=== PATIENT | female | born 1970 | race Hispanic/Latino ===

== ENCOUNTER 2018-04-11 17:18 | Observation (INO) | payer BC ==
[~2018-04-11] VITALS: Ht 152.4 cm; Wt 79.8 kg
[2018-04-11] MEDS ORDERED: SODIUM CHLORIDE 0.9% 1000ML 1,000 ML ONE (19:00)
[2018-04-11] MEDS ORDERED: METOPROLOL TARTRATE 50 MG TAB PO ONE (20:45)
[2018-04-11] MEDS ORDERED: ASPIRIN 81 MG CHEW TAB PO STA (20:48)
[2018-04-11] MEDS ORDERED: SODIUM CHLORIDE FLUSH 10 ML SYR INJ PRN (21:15)
[2018-04-11] MEDS ORDERED: PROMETHAZINE HCL (IM) 25 MG/ML VIAL IV PRN (21:15)
[2018-04-11] MEDS ORDERED: ASPIRIN 81 MG CHEW TAB PO ONE (21:15)
[2018-04-11] MEDS ORDERED: NITROGLYCERIN 0.4 MG SUBL SL PRN (21:15)
[2018-04-11] MEDS: METOPROLOL TARTRATE 25 MG TAB PO SCH (21:20)
[2018-04-11] MEDS: FAMOTIDINE 20 MG TAB PO SCH (22:17)
[2018-04-12] VITALS: BP 135/91
[2018-04-12] MEDS ORDERED: SUMATRIPTAN SUC50 MG PO (01:15)
[2018-04-12 01:33] VITALS: BP 135/91
[2018-04-12 02:55] LABS: CHOL/HDL RATIO 4.2 (3.0-3.6); CHOLESTEROL 182 MD/DL (0-199); CREATINE KINASE 42 IU/L (29-168); HDL CHOLESTEROL 43 MG/DL (40-60); LDL CHOLESTEROL 113 MG/DL (60-130); MAGNESIUM 1.9 MG/DL (1.3-2.1); PHOSPHORUS 3.7 MG/DL (2.3-4.7); TRIGLYCERIDES 132 MG/DL (0-149)
[2018-04-12 04:10] VITALS: BP 99/64
[2018-04-12 04:49] LABS: INR 0.94; PROTHROMBIN TIME 11.8 seconds (11.9-14.5)
[2018-04-12 05:26] VITALS: BP 99/64
[2018-04-12 07:28] LABS: MAGNESIUM 1.9 MG/DL (1.3-2.1); PHOSPHORUS 3.8 MG/DL (2.3-4.7)
[2018-04-12 07:52] LABS: FREE THYROXINE INDEX 1.9846 (1.4-3.8); THYROID STIMULATING HORMONE 2.253 uIU/mL (0.350-4.940)
[2018-04-12 08:00] VITALS: BP 124/73
[2018-04-12] MEDS ORDERED: ASPIRIN 81 MG ENTERIC COATED PO SCH (09:00)
[2018-04-12] MEDS: METOPROLOL TARTRATE 25 MG TAB PO SCH (09:34)
[2018-04-12] MEDS: FAMOTIDINE 20 MG TAB PO SCH (09:35)
--- NOTE | 2018-04-12 12:10 | History and Physical ---
Patient came in to the emergency room yesterday to the unit for palpitation. HISTORY OF PRESENTING ILLNESS: This is Ms. Janette Lu with a history of BRCA positive scheduled for surgery for bilateral mastectomy and also for some more biopsies and next felt until she got off work. For the last 3 days, she has been having increased palpitations. Palpitations were more on . Patient disregarded it and went down with her work, but yesterday, the patient also had another palpitation episode and today, on the day of admission, the patient has gotten out of work and had palpitation and her blood pressure was up to the 160s. Currently, the patient also has some light headache and had shortness of breath and last night, before arrival, the patient developed subconjunctival hemorrhage, which led her to the ER. Patient has no exacerbating factors or any modifying factors for the palpitation. PAST MEDICAL HISTORY: History of as mentioned BRCA positive. No atrial fibrillations, no medical problems other than that. SURGICAL HISTORY: Patient had , otherwise negative. REVIEW OF SYSTEMS: Negative for chest pain. Positive for palpitation. No nausea, vomiting, diarrhea, no constipation, no rectal bleeding, no hematochezia, no hematemesis, no diplopia, no blurry vision, no epistaxis, no double vision. Positive for eye irritation with this conjunctival hemorrhage. All other systems were reviewed and were negative. SOCIAL HISTORY: Never a smoker. . FAMILY HISTORY: Noncontributory except for an aunt with breast cancer, which led on to check on her BRCA, which is positive. ALLERGIES: ALLERGIC TO FUROSEMIDE. EXAMINATION GENERAL: Patient is alert and oriented times 3, appears to be in good health. Alert and oriented times 3 no distress at all. HEENT: Left subconjunctival hemorrhage medially. Pharynx normal. NECK: Normal. No JVD, no thyromegaly present. CVS: S1, S2 normal at this time. Regular rate and rhythm. ABDOMEN: Soft, nontender. Bowel sounds present. No organomegaly. RESPIRATORY SYSTEM: No acute respiratory distress. Positive for good air sounds in both bases and all of lung sanchez. BACK: Normal. SKIN: No rash present. EXTREMITIES: No clubbing, no cyanosis. Good range of motion. NEUROLOGIC: Alert and oriented times 3. No cranial nerve deficits noted, no motor deficits, no weakness, no sensory deficits, and reflexes are 2+ on all extremities, and muscle strength is normal. LABS: Within normal limits. EKG: Normal sinus rhythm and nonspecific ST/T changes were present. We did a complete workup in the freestanding unit, which was reported to me. The patient did have a CT of the lung, PE protocol, which was negative. Patient had also CT of the head, which is with no acute abnormalities. The patient was admitted for observation. He is on telemetry. At this time, the patient does not have any EKG changes or rhythm changes. Will continue monitor patient. Will order a TSH, T4, T3, and also lytes today, and also a CBC and a CMP. If all is normal, the patient can be discharged home. The patient also has been trended for troponins, and also, will do an EKG today. Continue monitor the patient here and will followup labs on discharge and decide on discharge. Job#: [id number] CQ
== END 2018-04-12 09:39 | disposition home or self-care (01) ==
LOC: FSED 17:18 → ERHOLD 23:52 → IMCU 04-12 00:01
PROVIDERS: ADMIT Family Medicine; ATTEND Family Medicine
DX: R00.2 Palpitations (principal); C50.919 Malignant neoplasm of unspecified site of unspecified female breast; H11.32 Conjunctival hemorrhage, left eye; Z88.8 Allergy status to other drugs, medicaments and biological substances
CPT/HCPCS: 36415; 70450; 71260; 80053; 80061; 81003; 81025; 82550; 82553 ×2; 83735; 83880; 84100; 84436; 84443; 84479; 84484 ×2; 85025; 85610; 85730; 93005 ×2; 99284; G0378 ×2; J2550; J7030